=== PATIENT | male | born 1985 | race Caucasian/White ===

== ENCOUNTER 2025-10-07 17:17 | Emergency (ER) | payer OTHER, SELFPAY ==
[2025-10-07 17:18] VITALS: PULSE 62; RESP 18; TEMP 36.2; O2SAT 99; BMI 39.8
[2025-10-07 17:56] VITALS: BP 156/89
[2025-10-07 18:03] LABS: Hematocrit 47.1 % (40-54); Hemoglobin 16.4 g/dL (13.0-16.5); Immature Granulocytes Count 0.020 X10^3/uL (0.0-0.0); Mean Corp Hgb Conc 34.8 g/dL (32-36); Mean Corpuscular Volume 85.2 fL (80-94); Mean Platelet Vol. 8.9 fl (6.2-12.0); NRBC Flagged by Analyzer 0 % (0-5); Platelet Count 219 K/mm3 (150-450); RBC Distribution Width CV 11.5 % (11.6-14.6); RBC Distribution Width SD 35.1 fl (35.1-43.9); Red Blood Count 5.53 M/mm3 (4.6-6.2); White Blood Count 6.0 K/mm3 (4.4-11.0)
--- NOTE | 2025-10-07 18:04 | RAD_ITS ---
PROCEDURE: CHEST PA AND LATERAL 10/07/2025 REASON FOR EXAM: CHEST PAIN TECHNIQUE: Procedure Code: RADCXR Modality: DX Procedure: CHEST PA AND LATERAL COMPARISON: None available. FINDINGS: Hardware: None Heart: The heart size is normal. Mediastinum: The mediastinal contour is unremarkable. Lungs: The lungs are clear. No pneumothorax or pleural effusion. Bones: The bones are unremarkable. RAD/Chest PA and Lateral IMPRESSION: NO ACUTE FINDINGS. Reading [facility]
--- NOTE | 2025-10-07 18:22 | CM.ED ---
Social work Reason for referral: no PCP Referral source: case find SW entered patient's room, introducing self and role at [facility]. Patient welcomed SW visit and patient's , June, was bedside. Patient confirmed lacking a PCP and needing to find one, but denied needing resources. June spoke up and stated needing resources and patient smiled. Patient and June were provided with [facility] Provider Directory and [facility] information. No other needs identified at this time. Pam Briggs, CASUAL SHOE INSPECTOR, INTERCHANGE AGENT
[2025-10-07 18:25] LABS: Anion Gap 10 (5-15); BUN 18 mg/dL (4-19); BUN/Creat Ratio 15.9 RATIO (10-20); Calcium,Total 9.4 mg/dL (7.6-11.0); Carbon Dioxide 26.7 mmol/L (21.0-32.0); Chloride 101 mmol/L (98-108); Estimated Creatinine Clearance 120.23 ml/min (50-250); Glucose 104 mg/dL (70-99); Potassium 3.9 mmol/L (3.3-5.1); Troponin T High Sensitivity < 6 ng/L (<=22)
[2025-10-07 19:18] VITALS: BP 148/80; PULSE 60; RESP 12; O2SAT 98
[2025-10-07 20:39] LABS: Troponin T High Sens 2 HR < 6 ng/L (<=22)
[2025-10-07 20:48] VITALS: BP 151/92; PULSE 63; RESP 18; TEMP 36.6; O2SAT 99
--- NOTE | 2025-10-07 22:56 | EX.ED.DYSGE1 ---
HPI History of Present Illness Chief Complaint: Numb/Ting Narrative Narrative: Patient is a 40-year-old male presenting to the emergency department for intermittent tingling down his left arm and intermittent left sided chest pain. Patient has no significant past medical history. No history of high blood pressure, diabetes, family history of sudden cardiac . Patient states that for the past 2 weeks she has had intermittent tingling that started in his left knuckles and now has traveled up his left arm to about mid upper arm. States that he will intermittently get sharp pains in his arm and into his left sided chest and left scapula. Denies any weakness of his arm. Denies any injuries. Denies any shortness of breath, abdominal pain, diaphoresis, nausea or vomiting. Denies any pain in his neck. Denies the tingling being exacerbated by neck movements. Denies back pain. PFSH PFSH Medical History no medical history Home Medications Medication Instructions Recorded Last Taken Type NK 10/07/25 Unknown History Allergy/AdvReac Type Severity Reaction Status Date / Time No Known Allergies Allergy Verified 10/07/25 17:18 Family History no significant family his Surgical History no surgical history Social History Smoking Status: Never smoker ROS ROS ED ROS Narrative see HPI EXAM Physical Exam Narrative Exam Narrative: Vital signs: Reviewed General: Alert and orientedx3. No acute distress HEENT: Head is normocephalic and atraumatic, sinuses nontender, pupils equal round and reactive. Nares are patent. Oropharynx and throat exams normal. Neck: Supple without lymphadenopathy nontender Cardiovascular: Regular rate and rhythm, no murmurs. No rubs or gallops. Normal S1 and S2. Bilateral radial and DP/PT pulses are 2+ and symmetric throughout. Respiratory: Clear to auscultation bilaterally. No wheezes, rales, rhonchi Abdominal: Soft and nontender. Normal bowel sounds. No guarding or rebound. Nonsurgical abdomen Extremities: No tenderness. No bruising. Normal range of motion. Normal sensation. Skin: No rash or redness. Neurological: Cranial nerves II through XII are grossly intact. Normal cerebellar function. Normal 5/5 strength in bilateral upper and lower extremities. Equal sensation in bilateral upper and lower extremities. The rest of the physical exam is unremarkable Const Vital Signs: 10/07/25 17:18 10/07/25 17:56 10/07/25 19:18 Temperature 97.2 F L Temperature Source Temporal Pulse Rate 62 60 Respiratory Rate 18 12 Blood Pressure 156/89 H 148/80 H Blood Pressure Mean 111 102 Pulse Ox 99 98 Oxygen Delivery Method Room Air Room Air 10/07/25 20:48 Temperature 97.9 F Temperature Source Pulse Rate 63 Respiratory Rate 18 Blood Pressure 151/92 H Blood Pressure Mean 111 Pulse Ox 99 Oxygen Delivery Method NIHSS NIHSS Initial: 1a Level of Consciousness: 0 1b LOC Questions (Score 2 if aphasic/stupor): 0 1c LOC Commands (Only score 1st attempt): 0 2 Best Gaze (If aphasic, use reflexive mvmts.): 0 3 Visual: 0 4 Facial Palsy: 0 5 Motor Arm Right (UN = amputation/fusion): 0 5 Motor Arm Left: 0 6 Motor Leg Right: 0 6 Motor Leg Left: 0 7 Limb ataxia (Only + if out of proportion): 0 8 Sensory (Aphasia/stupor=0 or 1, coma=2): 0 9 Best Language: 0 10 Dysarthria (mute, coma=2, intubated=UN): 0 11 Extinction and Inattention (only scored if +): 0 Total Score: 0 MDM MDM MDM Narrative Medical decision making narrative: Patient is a 40-year-old male presenting to the emergency department for intermittent tingling down his left arm and intermittent left sided chest pain. Patient was seen and examined. Vitals are stable. Patient resting in bed comfortably in no acute distress. Differential includes but is not limited to: ACS, arrhythmia, cervical radiculopathy, less likely stroke or aortic dissection given patient has had symptoms for the past 2 weeks. He does not describe it as ripping or tearing chest pain. Equal pulses throughout. Normal neurologic exam. No decreased strength. Patient reports a burning pain when touching his forearm. Extends up half way on the upper arm. Does not extend from the neck or shoulder. Is not exacerbated by neck turning. No neck injury. Less likely ACS given the pain is intermittent and shooting like pain. EKG shows sinus bradycardia with a sinus arrhythmia at a rate of 58. No ischemic changes noted. CBC with no leukocytosis and normal hemoglobin. BMP with no significant abnormalities. Troponin and reflex within normal limits. Chest x-ray reviewed by myself, no opacities, pneumothorax or wide mediastinum noted. Radiology read in agreement. Patient and updated on the negative workup. Low heart score of 1. Patient discharged from the Emergency Department. I do not feel that the patient's evaluation reveals any acute reason for admission at this time. I instructed them to either follow-up with their primary care physician or promptly return to the Emergency Department for reevaluation should symptoms worsen or new symptoms develop. I explained what symptoms would indicate the need to return to the emergency department. Shared decision making was used. The patient voiced understanding of the treatment plan and is agreeable with it. Clinical impression Chest pain Cervical radiculoapthy History & Record Review Discussion w/independent historian: Patient and Significant other Lab Data Attestation: I reviewed the patient's lab results. Labs: Laboratory Results - last 24 hr 10/07/25 10/07/25 17:55 20:03 WBC 6.0 RBC 5.53 Hgb 16.4 Hct 47.1 MCV 85.2 MCH 29.7 MCHC 34.8 RDW Std Deviation 35.1 RDW Coeff of Greg 11.5 L Plt Count 219 MPV 8.9 Immature Gran % (Auto) 0.300 Neut % (Auto) 56.6 Lymph % (Auto) 28.9 Charles % (Auto) 12.2 H Eos % (Auto) 1.5 Baso % (Auto) 0.5 Absolute Neuts (auto) 3.4 Absolute Lymphs (auto) 1.73 Nucleated RBC % 0 Sodium 137 Potassium 3.9 Chloride 101 Carbon Dioxide 26.7 Anion Gap 10 BUN 18 Creatinine 1.11 Estim Creat Clear Calc 120.23 Est GFR (MDRD) Non-Af 87 BUN/Creatinine Ratio 15.9 Glucose 104 H Calcium 9.4 Troponin T High Sens < 6 Troponin T Hi Sens 2 Hr < 6 Radiography Diagnostic Testing: Clinical Impression(s) from Imaging Studies Chest X-Ray 10/07/25 18:04 IMPRESSION: NO ACUTE FINDINGS. Reading Location: [facility] Discharge Plan Triage Chief Complaint: Numb/Ting ED Provider: Karina Maddox Dx/Rx/DC Orders Clinical Impression: Chest pain, Cervical radiculopathy Instructions: ED Chest Pain, Uncertain Cause, ED Radiculopathy, Cervical, ED RICE Prescriptions: No Action NK Primary Care Provider: Care Physician,No Primary Referrals: Christina Preciado MD [Med Staff - Physician Underwriter, Internal Medicine] - As soon as possible Care Physician,No Primary [Primary Care Provider, Medical] Activity Restrictions/Additional Instructions: Your evaluation in the Emergency Department did not reveal any acute reason for admission. However, I want to emphasize that you may be early in the course of a disease process or illness even if it is not present. For this reason you should follow-up within 24 hours for reevaluation with either your primary care physician or if necessary back here in the Emergency Department. You should return to the Emergency Department immediately if your symptoms worsen or new symptoms develop. Print Language: Amharic Disposition Disposition: Home, Self Care Discharge Date/Time: 10/07/25 20:52
== END 2025-10-07 20:52 | disposition home or self-care (01) ==
PROVIDERS: Emergency Provider Student in an Organized Health Care Education/Training Program; Visit Provider Student in an Organized Health Care Education/Training Program
DX: R07.89 Other chest pain (principal); M25.512 Pain in left shoulder; M54.12 Radiculopathy, cervical region; R20.0 Anesthesia of skin; R20.2 Paresthesia of skin; R29.700 NIHSS score 0
CPT/HCPCS: 71046; 80048; 84484; 85025; 93005; 99284; A4216